=== PATIENT | male | born 1945 | race Caucasian/White ===

== ENCOUNTER → 2016-09-14 | Outpatient (CLI) | payer MEDICARE, BC | LOC: RAD 15:03 | DX: R25.1 Tremor, unspecified (principal); R41.89 Other symptoms and signs involving cognitive functions and awareness; R25.9 Unspecified abnormal involuntary movements ==

== ENCOUNTER 2016-11-02 15:00 | Outpatient (RCR) | payer MEDICARE, BC | END 2016-11-15 08:38 | disposition home or self-care (01) | LOC: PT 15:00 | DX: R25.9 Unspecified abnormal involuntary movements (principal) ==

== ENCOUNTER 2017-11-22 18:19 | Emergency (ER) | payer OTHER, MEDICARE ==
[~2017-11-22] VITALS: Ht 180.3 cm; Wt 136.4 kg
[2017-11-22] MEDS ORDERED: AMLODIPINE BESY10 MG PO (18:27)
[2017-11-22] MEDS ORDERED: DIABETA 5MG5 MG/TAB PO (18:27)
[2017-11-22] MEDS ORDERED: METFOMIN HYDRO850 MG PO (18:27)
[2017-11-22] MEDS ORDERED: LISINOPRIL40 MG PO (18:27)
[2017-11-22] MEDS ORDERED: LEVEMIR FLEX100 U/ML SQ (18:28)
[2017-11-22] MEDS ORDERED: OMEPRAZOLE40 MG PO (18:28)
[2017-11-22] MEDS ORDERED: ASPIR LOW81 MG PO (18:28)
[2017-11-22 19:58] VITALS: BP 140/67
== END 2017-11-22 19:58 | disposition home or self-care (01) ==
LOC: ED 18:19
DX: S13.4XXA Sprain of ligaments of cervical spine, initial encounter (principal); V43.52XA Car driver injured in collision with other type car in traffic accident, initial encounter; Y92.410 Unspecified street and highway as the place of occurrence of the external cause; G20 Parkinson's disease; E11.9 Type 2 diabetes mellitus without complications; Z79.4 Long term (current) use of insulin; Z79.899 Other long term (current) drug therapy; Z79.82 Long term (current) use of aspirin
CPT/HCPCS: J1885

== ENCOUNTER 2018-01-27 15:00 | Outpatient (RCR) | payer OTHER, MEDICARE ==
[~2018-01-27 15:00] MED LIST: AMLODIPINE BESY10 MG PO; ASPIR LOW81 MG PO; DIABETA 5MG5 MG/TAB PO; LEVEMIR FLEX100 U/ML SQ; LISINOPRIL40 MG PO; METFOMIN HYDRO850 MG PO; OMEPRAZOLE40 MG PO
== END 2018-01-27 15:30 | disposition home or self-care (01) ==
LOC: PT 15:00
DX: M54.2 Cervicalgia (principal)

== ENCOUNTER 2019-08-06 09:22 | Emergency (ER) | payer MEDICARE, BC ==
[~2019-08-06] VITALS: Wt 129.0 kg
[2019-08-06] MEDS ORDERED: MEDI-FIRST ASP325 MG PO (09:32)
[2019-08-06] MEDS ORDERED: POTASSIUM CHLO20 ME3 PO (09:32)
[2019-08-06] MEDS ORDERED: PANTOPRAZOLE SO20 M1 PO (09:33)
[2019-08-06] MEDS ORDERED: FUROSEMIDE40 MG (09:33)
[2019-08-06] MEDS ORDERED: LEVEMIR100 U/M1 SQ (09:33)
[2019-08-06 11:17] VITALS: BP 123/63
== END 2019-08-06 11:15 | disposition home or self-care (01) ==
LOC: ED 09:22
DX: I10 Essential (primary) hypertension (principal); E10.9 Type 1 diabetes mellitus without complications; Z88.2 Allergy status to sulfonamides; Z79.82 Long term (current) use of aspirin

== ENCOUNTER → 2019-08-18 | Outpatient (CLI) | payer MEDICARE, BC ==
[~2019-08-18] VITALS: Ht 180.3 cm; Wt 130.5 kg
[2019-08-18] VITALS (8 sets, daily range): BP systolic 131–158; BP diastolic 66–83
[~2019-08-18] MED LIST changes: +ASPIRIN 32325 MG/TAB PO; +FUROSEMIDE40 MG; +LEVEMIR100 U/M1 SQ; +MAGNESIUM OXID400 M1 PO; +MEDI-FIRST ASP325 MG PO; +PANTOPRAZOLE SO20 M1 PO; +POTASSIUM CHLO20 ME3 PO
== END ==
LOC: AMSURD 15:59
DX: R79.0 Abnormal level of blood mineral (principal)
CPT/HCPCS: J3475

== ENCOUNTER 2019-09-28 10:35 | Emergency (ER) | payer MEDICARE, BC ==
[2019-09-28] MEDS ORDERED: TRESIBA FL200 UNIT/1 SQ (10:58)
[2019-09-28] MEDS ORDERED: VITAMIN D310 MC3 (11:01)
[2019-09-28] MEDS ORDERED: VITAMIN B122500 MC1 PO (11:02)
[2019-09-28 11:11] LABS: BASO # 0.1 (0.02-0.10); EOS # 0.1 (0.04-0.40); HEMATOCRIT 43.7 % (42.0-52.0); HEMOGLOBIN 14.3 g/dL (13.5-18.0); LYMPH# 1.8 (1.50-4.00); MEAN CELL VOLUME 91 fl (78-100); MEAN CORPUSCULAR HEMOGLOBIN 30 pg (27-31); MEAN CORPUSCULAR HGB CONC 33 g/dL (33-37); MEAN PLATELET VOLUME 8.9 fl (7.4-10.4); MONO # 0.7 (0.20-0.80); NEU # 3.9 (1.40-6.50); PLATELET COUNT 261 K/mm3 (130-400); RED BLOOD COUNT 4.83 M/mm3 (4.20-5.60); RED CELL DISTRIBUTION WIDTH 13.3 % (11.5-14.5); WHITE BLOOD COUNT 6.5 K/mm3 (4.8-10.8)
[2019-09-28 11:20] LABS: POTASSIUM 4.1 mmol/L (3.5-5.1); SODIUM 137 mmol/L (136-145)
[2019-09-28 11:21] LABS: CALCIUM 9.1 mg/dL (8.3-10.5)
[2019-09-28 11:22] LABS: GLUCOSE 121 mg/dL (75-110); TOTAL PROTEIN 7.6 g/dL (6.2-8.1)
[2019-09-28 11:23] LABS: CARBON DIOXIDE 23 mmol/L (23-31)
[2019-09-28 11:24] LABS: TOTAL BILIRUBIN 0.6 mg/dL (0.2-1.2)
[2019-09-28 11:27] LABS: AST-SGOT 14 U/L (5-34)
[2019-09-28 11:28] LABS: ALT/SGPT 13 U/L (0-55)
[2019-09-28 11:45] LABS: TROPONIN-I < 0.03 ng/mL (<0.030)
[2019-09-28 13:48] VITALS: BP 158/83
== END 2019-09-28 14:30 | disposition home or self-care (01) ==
LOC: ED 10:35
PROVIDERS: Nurse Practitioner Primary Care
DX: R07.89 Other chest pain (principal); E11.9 Type 2 diabetes mellitus without complications; I10 Essential (primary) hypertension; K21.9 Gastro-esophageal reflux disease without esophagitis; Z20.828 Contact with and (suspected) exposure to other viral communicable diseases; Z79.4 Long term (current) use of insulin; Z79.82 Long term (current) use of aspirin; Z86.718 Personal history of other venous thrombosis and embolism; Z88.2 Allergy status to sulfonamides
CPT/HCPCS: Q9967

== ENCOUNTER 2019-10-04 13:21 | Emergency (ER) | payer MEDICARE, BC ==
[~2019-10-04] VITALS: Wt 131.8 kg
[~2019-10-04 13:21] MED LIST changes: +TRESIBA FL200 UNIT/1 SQ; +VITAMIN B122500 MC1 PO; +VITAMIN D310 MC3
[2019-10-04 14:24] LABS: BASO # 0.1 (0.02-0.10); EOS # 0.2 (0.04-0.40); EOS % 2.4 % (0.0-4.0); HEMATOCRIT 44.2 % (42.0-52.0); HEMOGLOBIN 14.5 g/dL (13.5-18.0); MEAN CELL VOLUME 91 fl (78-100); MEAN CORPUSCULAR HEMOGLOBIN 30 pg (27-31); MEAN CORPUSCULAR HGB CONC 33 g/dL (33-37); MEAN PLATELET VOLUME 8.9 fl (7.4-10.4); MONO # 0.7 (0.20-0.80); NEU # 4.4 (1.40-6.50); PLATELET COUNT 254 K/mm3 (130-400); RED BLOOD COUNT 4.86 M/mm3 (4.20-5.60); RED CELL DISTRIBUTION WIDTH 13.5 % (11.5-14.5); WHITE BLOOD COUNT 7.4 K/mm3 (4.8-10.8)
[2019-10-04 14:30] LABS: CALCIUM 8.9 mg/dL (8.3-10.5)
[2019-10-04 15:30] VITALS: BP 165/81
== END 2019-10-04 15:45 | disposition home or self-care (01) ==
LOC: ED 13:21
PROVIDERS: Family Medicine
DX: R00.2 Palpitations (principal); E11.9 Type 2 diabetes mellitus without complications; I10 Essential (primary) hypertension; K21.9 Gastro-esophageal reflux disease without esophagitis; Z79.4 Long term (current) use of insulin; Z79.82 Long term (current) use of aspirin; Z86.718 Personal history of other venous thrombosis and embolism; Z86.79 Personal history of other diseases of the circulatory system; Z95.818 Presence of other cardiac implants and grafts

== ENCOUNTER → 2019-12-07 | Day surgery (SDC) | payer MEDICARE, BC | END | disposition home or self-care (01) | LOC: MSO 07:14 | DX: Z12.11 Encounter for screening for malignant neoplasm of colon (principal); Z80.0 Family history of malignant neoplasm of digestive organs; D12.2 Benign neoplasm of ascending colon; E11.9 Type 2 diabetes mellitus without complications; K57.30 Diverticulosis of large intestine without perforation or abscess without bleeding; G47.33 Obstructive sleep apnea (adult) (pediatric); G20 Parkinson's disease; Z79.84 Long term (current) use of oral hypoglycemic drugs; Z79.899 Other long term (current) drug therapy; Z88.2 Allergy status to sulfonamides; Z88.5 Allergy status to narcotic agent | CPT/HCPCS: 00811; J2704; J7030 ==

== ENCOUNTER 2020-08-31 09:07 | Outpatient (RCR) | payer MEDICARE, BC | END 2020-11-29 | LOC: PT | DX: M25.512 Pain in left shoulder (principal); G89.29 Other chronic pain ==

== ENCOUNTER → 2023-06-13 | Day surgery (SDC) | payer MEDICARE, BC ==
[~2023-06-13] MED LIST changes: +CARVEDILOL3.125 MG PO; +ELIQUIS5 MG PO; +Lidocaine PF 2% (20 MG/ML) 5 ML VIAL ONE; +VALSARTAN40 MG PO; +fentaNYL 100 MCG/2 ML VIAL ONE
== END | disposition home or self-care (01) ==
LOC: MSO 09:12
DX: D50.9 Iron deficiency anemia, unspecified (principal); Z12.11 Encounter for screening for malignant neoplasm of colon; D12.2 Benign neoplasm of ascending colon; Z80.0 Family history of malignant neoplasm of digestive organs; K57.30 Diverticulosis of large intestine without perforation or abscess without bleeding; I48.91 Unspecified atrial fibrillation; E66.01 Morbid (severe) obesity due to excess calories; Z79.01 Long term (current) use of anticoagulants; Z95.0 Presence of cardiac pacemaker
CPT/HCPCS: 00813; J2704; J3010; J7120

== ENCOUNTER 2023-12-25 12:52 | Outpatient (RCR) | payer MEDICARE, BC ==
[~2023-12-25 12:52] MED LIST changes: -Lidocaine PF 2% (20 MG/ML) 5 ML VIAL ONE; -fentaNYL 100 MCG/2 ML VIAL ONE
== END 2024-01-23 | disposition home or self-care (01) ==
LOC: PT
DX: M54.50 Low back pain, unspecified (principal)